=== PATIENT | male | born 1955 | race Caucasian/White ===

== ENCOUNTER 2017-10-12 21:37 | Inpatient (IN) | payer OTHER ==
[~2017-10-12] VITALS: Ht 180.3 cm; Wt 45.8 kg
[~2017-10-12 21:37] MED LIST: ADVIN10/60 INH; ALBU0.5N2 NEB; ALBU1AER9 INH; ASPI-435 PO; BUPR150T7 PO; CYAN500T13 PO; PRED20TA PO; PYRI100T2 PO; SILD100T PO; TRIA3AER NAE
--- NOTE | 2017-10-12 22:31 | EMERGENCY ROOM VISIT NOTE ---
History Report prepared by Jose Juan: Manan Centeno Under the Supervision of: Dr. Tc Oleary M.D. First contact with patient: 22:04 Chief Complaint: CHEST PAIN Stated Complaint: CHEST PAIN/[facility] Nursing Triage Summary: Pt. reports that he was laying in bed at [facility] when he had sudden onset of chest pressure that lasted about 15-20 minutes. Described pain as "felt like someone was sitting on my chest." Denies associated symptoms. He states that he is at [facility] for pneumonia and to get rehab. History of Present Illness The patient is a 62 year old male who presents to the Emergency Room for evaluation of an episode of chest pain occurring an hour prior to arrival. Patient notes that he was sitting at [facility] when he had a 20 min episode of crushing chest pressure. Left sternal area. No radiation. He denies any SOB, palpitations, nausea, vomiting, syncope, leg swelling, nor other symptoms. Notes he just laid in bed and stayed calm until pain went away spontaneously. No medications taken prior to arrival. States can not take ASA due to bleeding. Denies previous cardiac history without recent work-up for CAD. Notes long standing COPD with 2LNC O2 requirement, periodic prednisone use and recent hospitalization for PNA, thus at [facility] last few days. The patient denies having a history of PE/DVT. States he has history of HTN but denies DLP , DM, FamCAD, etc. He currently has no pain. Source of History: patient Onset: an hour prior to arrival Position: chest (left sternal area) Quality: other (crushing) Timing: other (20 minute episode) Modifying Factors (Relieving): other (laying down) Associated Symptoms: No SOB, No nausea, No vomiting Note: He denies any palpitations, leg swelling, and syncope. Review of Systems See HPI for pertinent positives & negatives. A total of 10 systems reviewed and were otherwise negative. Past Medical & Surgical Medical Problems: (1) Chest pain (2) COPD (chronic obstructive pulmonary disease) (3) HTN (hypertension) (4) Pneumonia Family History No pertinent family history stated. Social History Smoking Status: Former Smoker Marital Status: Housing Status: lives with family Occupation Status: disabled Current/Historical Medications Scheduled Acetaminophen (Tylenol), 500 MG PO Q4H Albuterol (Ventolin Hfa), 2 PUFFS INH Q4H Bupropion (Wellbutrin Sr), 150 MG PO BID Cyanocobalamin (Vitamin B12 500MCG), 500 MCG PO QAM Docusate Sodium (Docusate Sodium), 100 MG PO BID Fluticasone Furoate-Vilanterol (Breo Ellipta), 1 PUFF INH QAM Folic Acid (Folvite), 1 MG PO QAM Home O2 Therapy (Oxygen), 2 LITERS NA CONTINOUS Multiple Vitamins W/ Minerals (Centrum Silver Adult 50+), 1 TAB PO QDL Pantoprazole (Protonix), 40 MG PO QAM Potassium Ext Rel (Klor-Con), 20 MEQ PO TIDM Sertraline (Zoloft), 75 MG PO QAM Thiamine Mononitrate (Vitamin B1), 100 MG PO QAM Umeclidinium [place] (Incruse Ellipta), 1 PUFF INH QAM Scheduled PRN Albuterol Sulf (Albuterol Sulfate), 2.5 MG INH Q4H PRN for Shortness of Breath Tramadol (Ultram), 50 MG PO Q4H PRN for Pain Allergies Coded Allergies: Penicillins (Verified Allergy, Intermediate, WHOLE BODY RASH, 10/12/17) Physical Exam Vital Signs Date Time Temp Pulse Resp B/P (MAP) Pulse Ox O2 Delivery O2 Flow Rate FiO2 10/12/17 23:42 84 17 98 Nasal Cannula 2.0 10/12/17 23:30 115/59 10/12/17 23:12 88 14 98 Nasal Cannula 2.0 10/12/17 23:00 103/58 10/12/17 22:42 86 16 98 Nasal Cannula 2.0 10/12/17 22:37 86 20 98 Nasal Cannula 2.0 10/12/17 22:30 103/60 10/12/17 22:07 88 23 98 Nasal Cannula 2.0 10/12/17 22:04 94 10/12/17 22:00 114/58 10/12/17 21:46 103/54 10/12/17 21:38 36.9 87 18 103/54 98 Nasal Cannula 2.0 10/12/17 21:38 98 Nasal Cannula 2.0 10/12/17 21:38 98 Nasal Cannula 2.0 Physical Exam GENERAL: Patient is chronically unwell appearing and in no acute distress. Cachectic HEENT: No acute trauma, normocephalic atraumatic, mucous membranes moist, no nasal congestion, no scleral icterus. NECK: No stridor, no adenopathy, no meningismus, trachea is midline. LUNGS: Distant lung sounds in barrell chested emphysematous male. No dyspnea. Clear to auscultation and equal bilaterally. No wheezing HEART: Regular rate and rhythm. No murmurs, rubs, gallops appreciated. ABDOMEN: Soft, nontender, bowel sounds positive, no peritonitis. Pulsatile mid abdominal mass (patient notes AAA repair history) BACK: No midline tenderness, no CVA tenderness EXTREMITIES: Normal motion all extremities, no cyanosis, no edema. NEUROLOGIC: Alert and oriented, no acute motor or sensory deficits, no focal weakness, cranial nerves grossly intact. SKIN: No rash, no jaundice, no diaphoresis. Medical Decision & Procedures ER Provider Diagnostic Interpretation: Radiology results and stated below per my review and interpretation: 1 VIEW CHEST X-RAY PORTABLE: Severe emphysematous changes with patchy infiltrate throughout left lower lobe. No effusion. No pneumothorax. Laboratory Results 10/12/17 21:17 Red Blood Count 2.98, Mean Corpuscular Volume 102.0, Mean Corpuscular Hemoglobin 35.2, Mean Corpuscular Hemoglobin Concent 34.5, Mean Platelet Volume 11.1, Neutrophils (%) (Auto) 75.1, Lymphocytes (%) (Auto) 15.4, Monocytes (%) ( Auto) 7.2, Eosinophils (%) (Auto) 2.1, Basophils (%) (Auto) 0.0, Neutrophils # ( Auto) 4.69, Lymphocytes # (Auto) 0.96, Monocytes # (Auto) 0.45, Eosinophils # ( Auto) 0.13, Basophils # (Auto) 0.00 10/12/17 21:17 Test 10/12/17 21:17 White Blood Count 6.24 K/uL (4.8-10.8) Red Blood Count 2.98 M/uL (4.7-6.1) Hemoglobin 10.5 g/dL (14.0-18.0) Hematocrit 30.4 % (42-52) Mean Corpuscular Volume 102.0 fL (80-100) Mean Corpuscular Hemoglobin 35.2 pg (25-34) Mean Corpuscular Hemoglobin Concent 34.5 g/dl (32-36) Platelet Count 110 K/uL (130-400) Mean Platelet Volume 11.1 fL (7.4-10.4) Neutrophils (%) (Auto) 75.1 % Lymphocytes (%) (Auto) 15.4 % Monocytes (%) (Auto) 7.2 % Eosinophils (%) (Auto) 2.1 % Basophils (%) (Auto) 0.0 % Neutrophils # (Auto) 4.69 K/uL (1.4-6.5) Lymphocytes # (Auto) 0.96 K/uL (1.2-3.4) Monocytes # (Auto) 0.45 K/uL (0.11-0.59) Eosinophils # (Auto) 0.13 K/uL (0-0.5) Basophils # (Auto) 0.00 K/uL (0-0.2) RDW Standard Deviation 50.7 fL (36.4-46.3) RDW Coefficient of Variation 13.6 % (11.5-14.5) Immature Granulocyte % (Auto) 0.2 % Immature Granulocyte # (Auto) 0.01 K/uL (0.00-0.02) Anion Gap 4.0 mmol/L (3-11) Est Creatinine Clear Calc Drug Dose 73.6 ml/min Estimated GFR () 119.9 Estimated GFR (Non- 103.5 BUN/Creatinine Ratio 31.9 (10-20) Calcium Level 10.1 mg/dl (8.5-10.1) Magnesium Level 1.4 mg/dl (1.8-2.4) Troponin I 0.045 ng/ml (0-0.045) Laboratory results as reviewed by me. Medications Administered Medications (Trade) Dose Ordered Sig/William Route Start Time Stop Time Status Last Admin Dose Admin Magnesium Sulfate (Magnesium Sulfate) 2 gm NOW STAT IV 10/12/17 22:58 10/12/17 22:59 DC 10/12/17 23:17 2 GM Aspirin (Aspirin Chew) 324 mg NOW STAT PO 10/12/17 23:06 10/12/17 23:07 DC 10/12/17 23:17 324 MG ECG Indication: chest pain Rate (beats per minute): 85 Rhythm: sinus rhythm Findings: T-wave inversion (Lateral), no ectopy, other (No ischemia) Comparison ECG Date: no prior available ED Course 2203: The patient was evaluated in room B2. A complete history and physical exam was performed. 2305: I reevaluated and updated the patient. I discussed findings with him and his family. He is agreeable to hospitalist evaluation after a prolonged discussion. He and his family note that he can take aspirin, but was told previously to not take it regularly. 8: Upon reevaluation, the patient is stable. Discussed results and treatment plan with the patient. He verbalized understanding and agreement with the treatment plan. The patient will be evaluated for further management. Discussed the patient's case with Doreen Hassan. The patient will be evaluated for further treatment and disposition. Medical Decision Differential: Cardiac Ischemia (STEMI, NSTEMI, Unstable Angina, etc), Aortic Dissection, Arrhythmia, Pulmonary Embolism, Pneumonia, Pneumothorax, MSK, Infectious, Pericarditis/Myocarditis, Esophageal Rupture, Gastrointestinal, amongst other pathologies entertained. 62 yr old male with longstanding COPD and recent admission to [place] for LLL PNA, where then transferred to [facility] for rehab. This evening 20min CP resolved with no intervention. EKG with lateral T wave inversions. Trop wnl but not negative. No further pain in ED. Mag is quite low which may go with weakness. Will need cardiac rule out and patient/family prefer to do this in hosp rather than rule out in ED. He notes breathing much improved from hospitalization last week and is still on abx. LLL infiltrate likely resolving as opposed to new infiltrate. Medication Reconcilliation Current Medication List: was personally reviewed by me Blood Pressure Screening Patient's blood pressure: Normal blood pressure Blood pressure disposition: Did not require urgent referral Consults Time Called: [phone] Consulting Physician: Doreen Hassan Returned Call: [phone] Discussed the patient's case. The patient will be evaluated for further treatment and disposition. Impression Primary Impression: Substernal chest pain Additional Impressions: Hypomagnesemia Generalized weakness Scribe Attestation The scribe's documentation has been prepared under my direction and personally reviewed by me in its entirety. I confirm that the note above accurately reflects all work, treatment, procedures, and medical decision making performed by me. Departure Information Dispostion Being Evaluated By Hospitalist Referrals Zion Berman PA-C (PCP) Patient Instructions My [facility] Problem Qualifiers
[2017-10-12] MEDS ORDERED: MULT-1027 PO (22:33)
[2017-10-12] MEDS ORDERED: TRAM-10 PO (22:33)
[2017-10-12] MEDS ORDERED: PANT40TA PO (22:33)
[2017-10-12] MEDS ORDERED: FLUT1INH INH (22:33)
[2017-10-12] MEDS ORDERED: CYAN500T13 PO (22:33)
[2017-10-12] MEDS ORDERED: RRALBUT083 INH (22:33)
[2017-10-12] MEDS ORDERED: UMEC1INH INH (22:33)
[2017-10-12] MEDS ORDERED: DOCU100C31 PO (22:33)
[2017-10-12] MEDS ORDERED: ACET-1256 PO (22:33)
[2017-10-12] MEDS ORDERED: THIA1TAB11 PO (22:33)
[2017-10-12] MEDS ORDERED: OXGN (22:33)
[2017-10-12] MEDS ORDERED: POTA20TA16 PO (22:33)
[2017-10-12] MEDS ORDERED: PRVHFAIN INH (22:33)
[2017-10-12] MEDS ORDERED: FOLI1TAB8 PO (22:33)
[2017-10-12] MEDS ORDERED: SERT25TA PO (22:33)
[2017-10-12] MEDS ORDERED: BUPR-79 PO (22:41)
[2017-10-12] MEDS ORDERED: MULT-845 PO (22:41)
--- NOTE | 2017-10-12 22:46 | DIAGNOSTIC IMAGING REPORT ---
CHEST ONE VIEW PORTABLE CLINICAL HISTORY: Chest Pain dyspnea COMPARISON STUDY: No previous studies for comparison. FINDINGS: Diffuse emphysematous change. Chronic basilar interstitial and fibrotic change. Upper lobe emphysematous bleb changes. Postoperative changes left hilum. IMPRESSION: Diffuse emphysematous change with a potential interstitial infiltrate left base versus chronic fibrosis The above report was generated using voice recognition software. It may contain grammatical, syntax or spelling errors. Electronically signed by: Filemon Laura M.D. 10/12/2017 10:44 PM Dictated Date/Time: 10/12/2017 10:44 PM
[2017-10-12 22:48] LABS: EOS % 2.1 %; EOS ABS # 0.13 K/uL (0-0.5); HEMATOCRIT 30.4 % (42-52); HEMOGLOBIN 10.5 g/dL (14.0-18.0); IG# 0.01 K/uL (0.00-0.02); LYMPH % 15.4 %; LYMPH ABS # 0.96 K/uL (1.2-3.4); MEAN CORPUSCULAR HEMOGLOBIN 35.2 pg (25-34); MEAN CORPUSCULAR HGB CONC 34.5 g/dl (32-36); MEAN PLATELET VOLUME 11.1 fL (7.4-10.4); MONO % 7.2 %; MONO ABS # 0.45 K/uL (0.11-0.59); NEUT % 75.1 %; NEUT ABS # 4.69 K/uL (1.4-6.5); PLATELET COUNT 110 K/uL (130-400); RED CELL DISTRIBUTION WIDTH CV 13.6 % (11.5-14.5); RED CELL DISTRIBUTION WIDTH SD 50.7 fL (36.4-46.3); WHITE BLOOD COUNT 6.24 K/uL (4.8-10.8)
[2017-10-12 22:54] LABS: CALCIUM 10.1 mg/dl (8.5-10.1); CREATININE 0.64 mg/dl (0.60-1.40); POTASSIUM 4.4 mmol/L (3.5-5.1)
[2017-10-12] MEDS ORDERED: MAGNESIUM SULFATE 1GM / D5W 1 GM BAG IV STA (22:58)
[2017-10-12] MEDS ORDERED: ASPIRIN 324 MG CHEW PO STA (23:06)
[2017-10-13] MEDS ORDERED: TRAMADOL HCL 50 MG TAB PO PRN
[2017-10-13] MEDS ORDERED: ALBUTEROL 0.083% NEBU SOLN 3 ML VIAL INH PRN
[2017-10-13] MEDS ORDERED: ACETAMINOPHEN 500 MG TAB PO PRN
--- NOTE | 2017-10-13 00:16 | History and Physical ---
History & Physical Date & Time of Service: Oct 13, 2017 at 00:11 Chief Complaint: Chest Pain/[facility] Primary Care Physician: Zion Berman PA-C History of Present Illness Source: patient, family 62 year old M who was admitted to [facility] for Pneumonia / COPD on October 06, 2017 and discharged on Tuesday October 10, 2017 to [facility] when patient felt 15 minutes of midsternal chest pain, non radiating, about 2 hours after dinner. Patient reports symptoms resolved on its own. Denies previous similar symptoms. Denies history of gastric reflux. Patient's past medical history significant for COPD, is on oxygen 24 hours a day, history of lung resection, abdominal aortic aneurysm repair. Patient seen and evaluated in the Ed by hospitalist medicine physician and denies recurrence of the chest discomfort so far. Denies abdominal pain or changes in oral intake or urination or in bowel movements Social History Smoking Status: Former Smoker Marital Status: Occupational Status: disabled Allergies Coded Allergies: Penicillins (Verified Allergy, Intermediate, WHOLE BODY RASH, 10/12/17) Home Medications Scheduled Acetaminophen (Tylenol), 500 MG PO Q4H Albuterol (Ventolin Hfa), 2 PUFFS INH Q4H Bupropion (Wellbutrin Sr), 150 MG PO BID Cyanocobalamin (Vitamin B12 500MCG), 500 MCG PO QAM Docusate Sodium (Docusate Sodium), 100 MG PO BID Fluticasone Furoate-Vilanterol (Breo Ellipta), 1 PUFF INH QAM Folic Acid (Folvite), 1 MG PO QAM Home O2 Therapy (Oxygen), 2 LITERS NA CONTINOUS Multiple Vitamins W/ Minerals (Centrum Silver Adult 50+), 1 TAB PO QDL Pantoprazole (Protonix), 40 MG PO QAM Potassium Ext Rel (Klor-Con), 20 MEQ PO TIDM Sertraline (Zoloft), 75 MG PO QAM Thiamine Mononitrate (Vitamin B1), 100 MG PO QAM Umeclidinium [place] (Incruse Ellipta), 1 PUFF INH QAM Scheduled PRN Albuterol Sulf (Albuterol Sulfate), 2.5 MG INH Q4H PRN for Shortness of Breath Tramadol (Ultram), 50 MG PO Q4H PRN for Pain Review of Systems Constitutional: No fever Eyes: No discharge ENT: No nasal symptoms, No sore throat, No trouble swallowing Respiratory: No cough, No sputum, No wheezing, No shortness of breath Cardiovascular: + chest pain, No edema, No palpitations Abdomen: No pain, No nausea, No vomiting, No diarrhea, No constipation Musculoskeletal: No joint pain, No muscle pain, No swelling, No calf pain Genitourinary - Male: No dysuria Neurologic: No numbness/tingling Psychiatric: No substance abuse Endocrine: No fatigue Hematologic / Lymphatic: No abnormal bleeding/bruising Integumentary: No rash Physical Exam Vital Signs Date Time Temp Pulse Resp B/P (MAP) Pulse Ox O2 Delivery O2 Flow Rate FiO2 10/12/17 22:37 86 20 98 10/12/17 22:30 103/60 10/12/17 22:07 88 23 98 10/12/17 22:04 94 10/12/17 22:00 114/58 10/12/17 21:46 103/54 10/12/17 21:38 36.9 87 18 103/54 98 Nasal Cannula 2.0 10/12/17 21:38 98 Nasal Cannula 2.0 10/12/17 21:38 98 Nasal Cannula 2.0 General Appearance: no apparent distress, + thin Head: normocephalic, atraumatic Eyes: normal inspection, EOMI, sclerae normal ENT: normal ENT inspection, hearing grossly normal, pharynx normal Neck: supple, no JVD, trachea midline Respiratory/Chest: chest non-tender, lungs clear, normal breath sounds, no respiratory distress, no accessory muscle use Cardiovascular: regular rate, rhythm, no edema, no JVD, normal peripheral pulses Abdomen/GI: normal bowel sounds, non tender, soft, no organomegaly Back: normal inspection, no muscle spasm, normal range of motion Extremities/Musculoskelatal: normal inspection, no calf tenderness, no pedal edema, non-tender Neurologic/Psych: alert, normal mood/affect, oriented x 3 Skin: normal color, warm/dry, no rash Diagnostics Laboratory Results Results Past 24 Hours Test 10/12/17 21:17 Range/Units White Blood Count 6.24 4.8-10.8 K/uL Red Blood Count 2.98 4.7-6.1 M/uL Hemoglobin 10.5 14.0-18.0 g/dL Hematocrit 30.4 42-52 % Mean Corpuscular Volume 102.0 80-100 fL Mean Corpuscular Hemoglobin 35.2 25-34 pg Mean Corpuscular Hemoglobin Concent 34.5 32-36 g/dl Platelet Count 110 130-400 K/uL Mean Platelet Volume 11.1 7.4-10.4 fL Neutrophils (%) (Auto) 75.1 % Lymphocytes (%) (Auto) 15.4 % Monocytes (%) (Auto) 7.2 % Eosinophils (%) (Auto) 2.1 % Basophils (%) (Auto) 0.0 % Neutrophils # (Auto) 4.69 1.4-6.5 K/uL Lymphocytes # (Auto) 0.96 1.2-3.4 K/uL Monocytes # (Auto) 0.45 0.11-0.59 K/uL Eosinophils # (Auto) 0.13 0-0.5 K/uL Basophils # (Auto) 0.00 0-0.2 K/uL RDW Standard Deviation 50.7 36.4-46.3 fL RDW Coefficient of Variation 13.6 11.5-14.5 % Immature Granulocyte % (Auto) 0.2 % Immature Granulocyte # (Auto) 0.01 0.00-0.02 K/uL Sodium Level 132 136-145 mmol/L Potassium Level 4.4 3.5-5.1 mmol/L Chloride Level 96 98-107 mmol/L Carbon Dioxide Level 32 21-32 mmol/L Anion Gap 4.0 3-11 mmol/L Blood Urea Nitrogen 20 7-18 mg/dl Creatinine 0.64 0.60-1.40 mg/dl Est Creatinine Clear Calc Drug Dose 73.6 ml/min Estimated GFR () 119.9 Estimated GFR (Non- 103.5 BUN/Creatinine Ratio 31.9 10-20 Random Glucose 114 70-99 mg/dl Calcium Level 10.1 8.5-10.1 mg/dl Magnesium Level 1.4 1.8-2.4 mg/dl Troponin I 0.045 0-0.045 ng/ml Impression Assessment and Plan Cardiac -felt 15 minutes of midsternal chest pain, non radiating, about 2 hours after dinner -received aspirin 324 mg in the ED -troponin negative x 1, trend troponin -abdominal aortic aneurysm repair in the past -[facility] No change from study dated 02/02/2016, Aortic stenosis is absent. There is no -significant aortic regurgitation, Mitral stenosis is absent. Mild mitral regurgitation is present, Pulmonic stenosis is absent. There is no significant pulmonary regurgitation -since patient's recent echocardiogram has been normal, will ask cardiology to evaluate whether additional echocardiogram testing is needed for this presentation -NPO after midnight if needs stress test GI no prior history of gastric reflux will add ranitidine in case symptoms were due to GERD History of alcohol use in the past as [facility] notes Ativan prn if alcohol withdrawal symptoms Electrolytes Hypomagnesemia, serum magnesium 1.4. ED physician ordered IV magnesium 2 grams, will need to recheck serum magnesium levels for further replacement Respiratory reports history of lung resection, on 24 hour home oxygen, has smoking history, COPD/Asthma admitted to [facility] for Pneumonia / COPD on October 06, 2017 and discharged on Tuesday October 10, 2017 CXR: Diffuse emphysematous change with a potential interstitial infiltrate left base versus chronic fibrosis continue oxygen and home inhalers Disposition: Observation telemetry Full Code Daughter [phone] Level of Care Telemetry Resuscitation Status FULL RESUSCITATION VTE Prophylaxis VTE Risk Assessment Done? Y/N: Yes Risk Level: Moderate
[2017-10-13] MEDS ORDERED: IV FLUIDS COMPLETED PRN (00:30)
[2017-10-13] MEDS: BOOST VANILLA PO SCH (00:31)
[2017-10-13] MEDS ORDERED: LORAZEPAM 2 MG/ML 1 ML VIAL IV PRN (01:00)
[2017-10-13 01:15] VITALS: BP 86/56; PULSE 91; TEMP 36.5; O2SAT 94; BMI 13.6
[2017-10-13] MEDS ORDERED: MAGNESIUM SULFATE 1GM / D5W 1 GM in PREMIXED IN D5W 100 ML IV STA (02:04)
[2017-10-13] MEDS: ALBUTEROL HFA 8 GM INHALER INH SCH ×5 (04:08→20:35)
[2017-10-13 05:09] VITALS: BP 98/58; PULSE 76; TEMP 36.6; O2SAT 98
[2017-10-13 05:39] LABS: BASO % 0.2 %; BASO ABS # 0.01 K/uL (0-0.2); EOS % 2.4 %; EOS ABS # 0.14 K/uL (0-0.5); HEMATOCRIT 29.6 % (42-52); HEMOGLOBIN 10.2 g/dL (14.0-18.0); IG# 0.02 K/uL (0.00-0.02); LYMPH % 16.6 %; LYMPH ABS # 0.97 K/uL (1.2-3.4); MEAN CORPUSCULAR HEMOGLOBIN 34.8 pg (25-34); MEAN CORPUSCULAR HGB CONC 34.5 g/dl (32-36); MEAN PLATELET VOLUME 11.1 fL (7.4-10.4); MONO ABS # 0.41 K/uL (0.11-0.59); NEUT % 73.5 %; NEUT ABS # 4.31 K/uL (1.4-6.5); PLATELET COUNT 109 K/uL (130-400); RED CELL DISTRIBUTION WIDTH CV 13.6 % (11.5-14.5); RED CELL DISTRIBUTION WIDTH SD 49.7 fL (36.4-46.3); WHITE BLOOD COUNT 5.86 K/uL (4.8-10.8)
[2017-10-13 06:13] LABS: ALBUMIN 2.5 gm/dl (3.4-5.0); CALCIUM 9.1 mg/dl (8.5-10.1); CREATININE 0.41 mg/dl (0.60-1.40)
[2017-10-13 06:19] LABS: TOTAL PROTEIN 5.8 gm/dl (6.4-8.2)
[2017-10-13 07:39] VITALS: BP 99/64; PULSE 65; TEMP 36.8; O2SAT 100
[2017-10-13] MEDS: INCRUSE ELLIPTA~ORDER AWAITING ACTION SCH ×3 (08:00→23:36)
[2017-10-13] MEDS: POTASSIUM CHLORIDE 20 MEQ TABCR PO SCH ×3 (08:28→16:16)
[2017-10-13] MEDS: PANTOprazole SOD 40 MG TAB PO SCH (08:29)
[2017-10-13] MEDS: DOCUSATE SODIUM 100 MG CAP PO SCH ×2 (08:29→20:35)
[2017-10-13] MEDS: SERTRALINE HCL 50 MG TAB PO SCH (08:30)
[2017-10-13] MEDS: THIAMINE HCL 100 MG TAB PO SCH (08:30)
[2017-10-13] MEDS: RANITIDINE HCL 150 MG TAB PO SCH (08:30)
[2017-10-13] MEDS: BuPROPion SR 150 MG TABCR PO SCH ×2 (08:30→20:35)
[2017-10-13] MEDS: CYANOCOBALAMIN 500 MCG TAB (VIT B-12) PO SCH (08:30)
[2017-10-13] MEDS ORDERED: PERFLUTREN LIPID MICROSPHERE (DEFINITY) IV ONE (09:22)
[2017-10-13] MEDS ORDERED: HEPARIN IV BOLUS 4,000 UNIT in SYRINGE 0 ML IV ONE ×2 (10:45→19:00)
--- NOTE | 2017-10-13 10:51 | ECHOCARDIOGRAM REPORT ---
*NOTICE TO RECEIVING DEMOCRAT AGENCY This information is strictly Confidential and protected under [place] law. [place] law prohibits you from making any further disclosure of this information unless further disclosure is expressly permitted by the written consent of the person to whom it pertains or is authorized by law. A general authorization for the release of medical or other information is not sufficient for this purpose. Hospital accepts no responsibility if the information is made available to any other person, INCLUDING THE PATIENT. Interpretation Summary * Name: CARLOS MANUEL SANTIAGO Study Date: 10/13/2017 08:46 AM BP: 99/64 mmHg * Patient Location: [facility]\S\[id number]\S\[id number] HR: 65 * : 1955 (M/d/yyy) Gender: Male Height: 71 in * Age: 62 yrs Ethnicity: [place] Weight: 97 lb * Ordering Physician: Darwin Munson * Referring Physician: Dena Richard * Performed By: Meghana Jackson RDCS * * Reason For Study: CHEST PAIN * BSA: 1.6 m2 * The study was technically adequate. * There is no comparison study available. * -- Conclusions -- * Ejection Fraction = 55-60%. * The left ventricular wall motion is normal. * Aortic valve sclerosis mild, without significant aortic valvular stenosis. * There is trace tricuspid regurgitation. Procedure Details * A contrast injection of Definity was performed to improve assessment of LV function. * Contrast was injected into an intravenous site in the left arm. * One vial of Definity ultrasound contrast was diluted in normal saline to a total volume of 10 ml. A total of '2' ml of solution was administered during imaging. * Lot # [id number] of Definity utilized for procedure. * Expiration date 1 NOV 20. * The attending nurse who injected the contrast agent was BLAINE AMAYA RN. * A complete two-dimensional transthoracic echocardiogram was performed (2D, M-mode, Doppler and color flow Doppler). Left Ventricle * The left ventricle is normal in size. * There is no thrombus. * There is normal left ventricular wall thickness. * Ejection Fraction = 55-60%. * Left ventricular systolic function is normal. * The left ventricular wall motion is normal. Right Ventricle * The right ventricle is normal size. * The right ventricular systolic function is normal as assessed by tricuspid annular plane systolic excursion (TAPSE) (normal >1.5 cm). Atria * The left atrial size is normal. * Right atrial size is normal. * There is no evidence of atrial septal defect, but resolution does not allow assessment for a patent foramen ovale. Mitral Valve * The mitral valve is normal. * There is no mitral valve stenosis. * Significant mitral regurgitation is absent. Tricuspid Valve * The tricuspid valve is normal. * There is no tricuspid stenosis. * There is trace tricuspid regurgitation. Aortic Valve * The aortic valve is trileaflet. * Aortic valve sclerosis mild, without significant aortic valvular stenosis. * Aortic stenosis is absent. * There is no significant aortic regurgitation. Pulmonic Valve * The pulmonary valve is not well seen, but the Doppler examination is normal without significant regurgitation or stenosis. Great Vessels * The aortic root is normal size. Pericardium/Pleural * There is no pericardial effusion. Great Vessels * Normal inferior vena cava diameter and respiratory variation suggests normal central venous pressure. Left Ventricular Diastolic Function * Pulse wave TDI of the anterior and posterior mitral annulas demonstrates normal LV relaxation MMode 2D Measurements and Calculations IVSd 0.81 cm IVSs 1.2 cm LVIDd 4.1 cm LVIDs 2.7 cm LVPWd 1.3 cm LVPWs 1.3 cm IVS/LVPW 0.65 FS 34.6 % EDV(Teich) 74.7 ml ESV(Teich) 26.8 ml EF(Teich) 64.2 % EDV(cubed) 69.5 ml ESV(cubed) 19.5 ml EF(cubed) 72.0 % % IVS thick 51.7 % % LVPW thick 0.98 % LV mass(C)d 138.7 grams LV mass(C)dI 89.4 grams/m\S\2 LV mass(C)s 100.5 grams LV mass(C)sI 64.8 grams/m\S\2 SV(Teich) 47.9 ml SI(Teich) 30.9 ml/m\S\2 SV(cubed) 50.0 ml SI(cubed) 32.3 ml/m\S\2 Ao root diam 4.0 cm Ao root area 12.6 cm\S\2 LA dimension 2.9 cm LA/Ao 0.72 LVAd ap4 26.7 cm\S\2 LVLd ap4 7.3 cm EDV(MOD-sp4) 80.6 ml EDV(sp4-el) 82.4 ml LVAs ap4 15.6 cm\S\2 LVLs ap4 5.9 cm ESV(MOD-sp4) 35.0 ml ESV(sp4-el) 35.4 ml EF(MOD-sp4) 56.6 % EF(sp4-el) 57.0 % LVAd ap2 30.0 cm\S\2 LVLd ap2 8.0 cm EDV(MOD-sp2) 95.1 ml EDV(sp2-el) 94.8 ml LVAs ap2 16.4 cm\S\2 LVLs ap2 6.4 cm ESV(MOD-sp2) 35.7 ml ESV(sp2-el) 35.9 ml EF(MOD-sp2) 62.4 % EF(sp2-el) 62.2 % LVLd %diff 8.9 % EDV(MOD-bp) 91.5 ml LVLs %diff 7.8 % ESV(MOD-bp) 36.8 ml EF(MOD-bp) 59.8 % SV(MOD-sp4) 45.7 ml SI(MOD-sp4) 29.4 ml/m\S\2 SV(MOD-sp2) 59.4 ml SI(MOD-sp2) 38.3 ml/m\S\2 SV(MOD-bp) 54.7 ml SI(MOD-bp) 35.3 ml/m\S\2 SV(sp4-el) 47.0 ml SI(sp4-el) 30.3 ml/m\S\2 SV(sp2-el) 59.0 ml SI(sp2-el) 38.0 ml/m\S\2 Doppler Measurements and Calculations Ao V2 max 103.2 cm/sec Ao max PG 4.3 mmHg Ao max PG (full) 1.1 mmHg LV V1 max PG 3.2 mmHg LV V1 max 88.8 cm/sec
[2017-10-13 11:38] LABS: INR 0.9 (0.9-1.1); PTT PATIENT 25.7 SECONDS (21.0-31.0)
[2017-10-13 11:40] VITALS: BP 90/58; PULSE 81; TEMP 37.1; O2SAT 91
--- NOTE | 2017-10-13 11:42 | CARDIOLOGY CONSULTATION ---
DATE OF CONSULTATION: 10/13/2017 REFERRING PHYSICIAN: Dr. Tashi Ramesh. REASON FOR CONSULTATION: Chest pain. HISTORY OF PRESENT ILLNESS: Mr. Aldana is a chronically ill 62-year-old gentleman who was transferred from [facility] due to an episode of chest discomfort. He had been hospitalized for pneumonia and COPD exacerbation on October 06 in [place]. He was then transferred to [facility] on October 10. On the evening of admission, the patient developed an episode of chest tightness which was nonradiating about 2 hours after dinner. He states the symptoms lasted approximately 15 minutes. Denies any previous heartburn or gastroesophageal reflux disease. He came to the ER for evaluation. Initial EKG demonstrated sinus rhythm with T-wave abnormality in the anterolateral leads. His repeat ECG this morning demonstrates deep T-wave inversions. His cardiac enzymes are not significantly elevated. He has been chest pain free overnight. Denies prior history of coronary disease, congestive heart failure, peripheral vascular disease, or dysrhythmia. The patient is extremely thin appearing and cachectic. He admits to excessive alcohol and tobacco use over the past 6 months with a nearly 60 pound weight loss. He currently offers no complaints. REVIEW OF SYSTEMS: Significant for cachexia, chronic dyspnea on exertion, cough, episode of chest discomfort, comprehensive 10 system review is otherwise negative. PAST MEDICAL HISTORY: COPD, hypertension, pneumonia. PAST SURGICAL HISTORY: Not listed. FAMILY HISTORY: Negative for premature coronary artery disease or sudden cardiac . SOCIAL HISTORY: Significant heavy tobacco abuse noted. He quit smoking last month. He is and usually lives with his family. He is on disability. OUTPATIENT MEDICATIONS: Prior to admission: 1. Breo inhaler 2 puffs every 4 hours. 2. Wellbutrin 150 mg twice daily. 3. Vitamin B12 500 mcg daily. 4. Colace 100 mg b.i.d. 5. Breo one puff daily. 6. Supplemental oxygen 2 liters continuous. 7. Protonix 40 mg daily. 8. Potassium chloride 20 mEq t.i.d. 9. Zoloft 75 mg daily. 10. B1 daily. 11. Ellipta daily. 12. Tramadol as needed. ALLERGIES: LISTED TO PENICILLIN. ECG noted as above. Chest x-ray demonstrates COPD without infiltrate or pulmonary edema. LABORATORY DATA: Cardiac enzymes are negative. His sodium is 131, potassium 4.0, chloride 97, BUN is 19 with creatinine 0.41. Triglycerides 94, total cholesterol 124, LDL is 67 and his HDL is 38. White blood cell count 5.86. His hemoglobin is 10.2 with an MCV of 101, his platelet count is 109. Telemetry demonstrates sinus rhythm. PHYSICAL EXAMINATION: VITAL SIGNS: Temperature is 36.8 degrees centigrade, pulse 65 beats per minute and regular, respiratory rate 20 breaths per minute, blood pressure is 99/64, SaO2 is 100% on 2 liters nasal cannula. GENERAL: NAD, cachectic, chronically ill appearing. He is awake, alert and oriented x3. HEENT: His mucous membranes are moist. No scleral icterus. Conjunctivae pink. NECK: Supple. There is no JVD or HJR. No carotid bruit. HEART: Regular with a normal S1 and S2. There is no murmur, rub, or gallop. LUNGS: Demonstrate diminished breath sounds bilaterally. There is a faint end expiratory wheezing noted bilaterally. There are no rhonchi or rales. ABDOMEN: Thin, nontender, no rebound or guarding, normal bowel sounds. EXTREMITIES: Demonstrate severe muscle wasting. Distal pulses are palpable. NEUROLOGIC: No focal deficit. FINAL IMPRESSION: 1. A 62-year-old male admitted with episode of transient chest discomfort. A repeat resting 2D transthoracic echo demonstrates normal wall motion, cardiac enzymes are not significantly elevated. His ECG demonstrates changes which are concerning for underlying ischemic heart disease, although he has been asymptomatic over the past 12 hours. 2. Cachexia, possibly related to heavy alcohol intake with evidence of anemia, thrombocytopenia and macrocytosis per CBC. 3. History of heavy tobacco abuse and severe underlying chronic obstructive pulmonary disease on continuous oxygen supplementation. 4. Recent hospitalization for pneumonia/chronic obstructive pulmonary disease exacerbation. 5. History of hypertension, currently borderline hypotensive and asymptomatic, antihypertensive medications on hold. PLAN AND RECOMMENDATIONS: Bedside echo was reviewed demonstrating normal wall motion. Recommend conservative medical management due to patient's comorbidity, cachexia, history of excessive alcohol intake, anemia, thrombocytopenia at this time. We will initiate IV heparin with close monitoring for any signs of GI blood loss. We will continue telemetry monitoring during hospitalization. Low dose aspirin and statin therapy will be added at this time. Repeat LFTs will be performed in the a.m. Awaiting result of coagulation profile given presumed underlying liver disease related to alcohol intake. We will continue to follow closely during hospitalization. Case discussed with hospitalized. Thank you for allowing me to participate in the care of your patient.
[2017-10-13] MEDS: HEPARIN 25,000 UNIT/500ML D5W 500 ML IV PRN ×2 (11:48→19:27)
[2017-10-13 12:36] VITALS: Ht 180.3 cm; Wt 45.8 kg
[2017-10-13] MEDS: CEROVITE ADV FORMULA TAB PO SCH (13:06)
[2017-10-13 15:30] VITALS: BP 103/64; PULSE 99; TEMP 36.9; O2SAT 96
--- NOTE | 2017-10-13 15:59 | Progress Note ---
Internal Med Progress Note Date of Service: Oct 13, 2017. Provider Documentation: SUBJECTIVE: The patient was seen and examined Admitted with Chest pain and significant EKG changes No more CP OBJECTIVE: Vital Signs-as noted below Exam: General-No distress at rest Poor nutrition Eyes-normal ENT-normal Neck-Supple Lungs-Decreased breath sound bilaterally Heart-Regular Abdomen-Benign,no masses,bowel sound present Extremities-No edema Neuro-AAOx3 Lab data as noted below. ASSESSMENT & PLAN: Transient CP with EKG changes No more CP No increase in Trop -echocardiogram Study Date: 07/24/2017 from [facility] EF = 63% No change from study dated 02/02/2016, Aortic stenosis is absent. There is no -significant aortic regurgitation, Mitral stenosis is absent. Mild mitral regurgitation is present, Pulmonic stenosis is absent. There is no significant pulmonary regurgitation ECHO-Ejection Fraction = 55-60%. * The left ventricular wall motion is normal. * Aortic valve sclerosis mild, without significant aortic valvular stenosis. * There is trace tricuspid regurgitation. Appreciate Cardiology input Has been on Heparin Likely conservative management GERD will add ranitidine in case symptoms were due to GERD History of alcohol use in the past as [facility] notes Ativan prn if alcohol withdrawal symptoms Electrolytes Abnormalities Hypomagnesemia, serum magnesium 1.4. ED physician ordered IV magnesium 2 grams, will need to recheck serum magnesium levels for further replacement Monitor COPD H/O lung resection, on 24 hour home oxygen, has smoking history, COPD/Asthma Admitted to [facility] for Pneumonia / COPD on October 06, 2017 and discharged on Tuesday October 10, 2017 CXR: Diffuse emphysematous change with a potential interstitial infiltrate left base versus chronic fibrosis Continue oxygen and home inhalers Clinically stable Disposition: Observation telemetry Full Code Discussed with the family members Vital Signs: Date Time Temp Pulse Resp B/P (MAP) Pulse Ox O2 Delivery O2 Flow Rate FiO2 10/13/17 15:30 36.9 99 16 103/64 (77) 96 2.0 10/13/17 12:00 Nasal Cannula 2.0 10/13/17 11:40 37.1 81 18 90/58 (69) 91 10/13/17 08:00 Nasal Cannula 2.0 10/13/17 07:39 36.8 65 20 99/64 (76) 100 10/13/17 05:09 36.6 76 18 98/58 (71) 98 Nasal Cannula 2.0 10/13/17 04:00 Nasal Cannula 2.0 10/13/17 01:15 36.5 91 18 86/56 94 Nasal Cannula 2.0 10/13/17 00:30 108/53 10/13/17 00:17 85 15 97 Nasal Cannula 2.0 10/13/17 00:12 83 16 96 Nasal Cannula 2.0 10/13/17 00:01 108/54 10/13/17 00:00 108/54 10/12/17 23:42 84 17 98 Nasal Cannula 2.0 10/12/17 23:30 115/59 10/12/17 23:12 88 14 98 Nasal Cannula 2.0 10/12/17 23:00 103/58 10/12/17 22:42 86 16 98 Nasal Cannula 2.0 10/12/17 22:37 86 20 98 Nasal Cannula 2.0 10/12/17 22:30 103/60 10/12/17 22:07 88 23 98 Nasal Cannula 2.0 10/12/17 22:04 94 10/12/17 22:00 114/58 10/12/17 21:46 103/54 10/12/17 21:38 36.9 87 18 103/54 98 Nasal Cannula 2.0 10/12/17 21:38 98 Nasal Cannula 2.0 10/12/17 21:38 98 Nasal Cannula 2.0 Lab Results: Results Past 24 Hours Test 10/12/17 21:17 10/13/17 05:04 10/13/17 10:25 10/13/17 11:12 Range/Units White Blood Count 6.24 5.86 4.8-10.8 K/uL Red Blood Count 2.98 2.93 4.7-6.1 M/uL Hemoglobin 10.5 10.2 14.0-18.0 g/dL Hematocrit 30.4 29.6 42-52 % Mean Corpuscular Volume 102.0 101.0 80-100 fL Mean Corpuscular Hemoglobin 35.2 34.8 25-34 pg Mean Corpuscular Hemoglobin Concent 34.5 34.5 32-36 g/dl Platelet Count 110 109 130-400 K/uL Mean Platelet Volume 11.1 11.1 7.4-10.4 fL Neutrophils (%) (Auto) 75.1 73.5 % Lymphocytes (%) (Auto) 15.4 16.6 % Monocytes (%) (Auto) 7.2 7.0 % Eosinophils (%) (Auto) 2.1 2.4 % Basophils (%) (Auto) 0.0 0.2 % Neutrophils # (Auto) 4.69 4.31 1.4-6.5 K/uL Lymphocytes # (Auto) 0.96 0.97 1.2-3.4 K/uL Monocytes # (Auto) 0.45 0.41 0.11-0.59 K/uL Eosinophils # (Auto) 0.13 0.14 0-0.5 K/uL Basophils # (Auto) 0.00 0.01 0-0.2 K/uL RDW Standard Deviation 50.7 49.7 36.4-46.3 fL RDW Coefficient of Variation 13.6 13.6 11.5-14.5 % Immature Granulocyte % (Auto) 0.2 0.3 % Immature Granulocyte # (Auto) 0.01 0.02 0.00-0.02 K/uL Sodium Level 132 131 136-145 mmol/L Potassium Level 4.4 4.0 3.5-5.1 mmol/L Chloride Level 96 97 98-107 mmol/L Carbon Dioxide Level 32 32 21-32 mmol/L Anion Gap 4.0 2.0 3-11 mmol/L Blood Urea Nitrogen 20 19 7-18 mg/dl Creatinine 0.64 0.41 0.60-1.40 mg/dl Est Creatinine Clear Calc Drug Dose 73.6 113.5 ml/min Estimated GFR () 119.9 144.0 Estimated GFR (Non- 103.5 124.3 BUN/Creatinine Ratio 31.9 45.9 10-20 Random Glucose 114 116 70-99 mg/dl Calcium Level 10.1 9.1 8.5-10.1 mg/dl Magnesium Level 1.4 2.5 1.8-2.4 mg/dl Troponin I 0.045 0.039 0.034 0-0.045 ng/ml Total Bilirubin 0.2 0.2-1 mg/dl Aspartate Amino Transf (AST/SGOT) 42 15-37 U/L Alanine Aminotransferase (ALT/SGPT) 51 12-78 U/L Alkaline Phosphatase 62 45-117 U/L Total Protein 5.8 6.4-8.2 gm/dl Albumin 2.5 3.4-5.0 gm/dl Globulin 3.3 2.5-4.0 gm/dl Albumin/Globulin Ratio 0.8 0.9-2 Triglycerides Level 94 0-150 mg/dl Cholesterol Level 124 0-200 mg/dl HDL Cholesterol 38 mg/dl LDL Cholesterol, Calculated 67 mg/dl VLDL Cholesterol, Calculated 19 mg/dl Cholesterol/HDL Ratio 3.3 Prothrombin Time 9.4 9.0-12.0 SECONDS Prothromb Time International Ratio 0.9 0.9-1.1 Activated Partial Thromboplast Time 25.7 21.0-31.0 SECONDS Partial Thromboplastin Ratio 1.0 Microbiology Results 10/13/17 MRSA DNA Surveillance Screen - Final, Complete Specimen Negative for MRSA by DNA Probe
[2017-10-13 18:16] LABS: PTT PATIENT 32.9 SECONDS (21.0-31.0)
[2017-10-13 20:13] VITALS: BP 114/71; PULSE 85; TEMP 36.8; O2SAT 96
[2017-10-14] VITALS (8 sets, daily range): BP systolic 98–114; BP diastolic 48–66; PULSE 71–83; TEMP 36.3–37; O2SAT 93–100
[2017-10-14 02:19] LABS: PTT PATIENT 45.7 SECONDS (21.0-31.0)
[2017-10-14] MEDS: HEPARIN 25,000 UNIT/500ML D5W 500 ML IV PRN ×2 (03:57→13:04)
[2017-10-14] MEDS: ALBUTEROL HFA 8 GM INHALER INH SCH ×6 (03:57→19:26)
[2017-10-14] MEDS ORDERED: HEPARIN IV BOLUS 2,000 UNIT in SYRINGE 0 ML IV ONE (04:00)
[2017-10-14] MEDS: INCRUSE ELLIPTA~ORDER AWAITING ACTION SCH ×2 (07:52→15:58)
[2017-10-14] MEDS: BOOST VANILLA PO SCH ×3 (07:53→15:58)
[2017-10-14] MEDS: RANITIDINE HCL 150 MG TAB PO SCH (07:55)
[2017-10-14] MEDS: THIAMINE HCL 100 MG TAB PO SCH (07:55)
[2017-10-14] MEDS: DOCUSATE SODIUM 100 MG CAP PO SCH ×2 (07:55→20:53)
[2017-10-14] MEDS: SERTRALINE HCL 50 MG TAB PO SCH (07:55)
[2017-10-14] MEDS: BuPROPion SR 150 MG TABCR PO SCH ×2 (07:56→20:53)
[2017-10-14] MEDS: ATORVASTATIN 10 MG TAB PO SCH (07:56)
[2017-10-14] MEDS: PANTOprazole SOD 40 MG TAB PO SCH (07:56)
[2017-10-14] MEDS: ASPIRIN 81 MG CHEW PO SCH (07:56)
[2017-10-14] MEDS: CYANOCOBALAMIN 500 MCG TAB (VIT B-12) PO SCH (07:56)
[2017-10-14] MEDS: POTASSIUM CHLORIDE 20 MEQ TABCR PO SCH ×3 (07:57→15:59)
[2017-10-14 08:08] LABS: HEMATOCRIT 29.5 % (42-52); HEMOGLOBIN 10.2 g/dL (14.0-18.0); MEAN CELL VOLUME 101.4 fL (80-100); MEAN CORPUSCULAR HEMOGLOBIN 35.1 pg (25-34); MEAN CORPUSCULAR HGB CONC 34.6 g/dl (32-36); MEAN PLATELET VOLUME 10.8 fL (7.4-10.4); PLATELET COUNT 113 K/uL (130-400); RED CELL DISTRIBUTION WIDTH CV 13.6 % (11.5-14.5); RED CELL DISTRIBUTION WIDTH SD 50.2 fL (36.4-46.3); WHITE BLOOD COUNT 4.36 K/uL (4.8-10.8)
[2017-10-14 08:42] LABS: CALCIUM 9.1 mg/dl (8.5-10.1); CREATININE 0.49 mg/dl (0.60-1.40); POTASSIUM 3.8 mmol/L (3.5-5.1)
[2017-10-14 08:43] LABS: PHOSPHORUS 4.3 mg/dl (2.5-4.9)
[2017-10-14 10:36] LABS: ALBUMIN 2.5 gm/dl (3.4-5.0); ALKALINE PHOSPHATASE 65 U/L (45-117); ALT/SGPT 68 U/L (12-78); AST/SGOT 52 U/L (15-37); TOTAL PROTEIN 6.3 gm/dl (6.4-8.2)
[2017-10-14 10:57] LABS: PTT PATIENT 49.9 SECONDS (21.0-31.0)
[2017-10-14] MEDS: CEROVITE ADV FORMULA TAB PO SCH (11:23)
[2017-10-14] MEDS ORDERED: METOPROLOL SUCC 25MG EXT REL TAB PO ONE (14:06)
--- NOTE | 2017-10-14 14:20 | CARDIOLOGY PROGRESS NOTE ---
DATE: 10/14/2017 DATE: 10/14/2017 The patient seen and examined. Chart, medications, telemetry reviewed. SUBJECTIVE: The patient feels well, has had no further pain or discomfort since admission, has been ambulatory in room and eating better. Notes weight is trending slightly upward. Notes no dizziness or lightheadedness. Notes no tachypalpitations or syncope. OBJECTIVE: VITAL SIGNS: Heart rate is 75, blood pressure is 113/65. NECK: Thin. There is no jugular venous distention. There are no carotid bruits. LUNGS: Clear with diffusely diminished breath sounds. CARDIOVASCULAR: Regular. There is no S3 gallop. ABDOMEN: Soft, nontender. EXTREMITIES: Without cyanosis or clubbing. There is no peripheral edema. There are intact distal pulses. LABORATORY DATA: Sodium is 131, potassium is 3.8, chloride is 95, bicarbonate is 30, BUN is 16, creatinine 0.49. AST was 52. IMPRESSION: A 62-year-old male with history of multiple underlying medical issues as described with chronic cachexia, chronic obstructive lung disease admitted with transient episode of chest pain with negative enzymes and EKGs initially though with chronic deep T-wave inversions observed on serial EKGs. Findings are concerning for underlying ischemic heart disease, though patient relatively poor risk for intervention at this time. PLAN: Heparin discontinued. Will add low dose beta josh to regimen and consider stress testing post hospital discharge as clinical course progresses.
--- NOTE | 2017-10-14 15:27 | Progress Note ---
Internal Med Progress Note Date of Service: Oct 14, 2017. Provider Documentation: SUBJECTIVE: The patient was seen and examined Admitted with Chest pain and significant EKG changes No more CP Remains stable and wants to go back to [facility] OBJECTIVE: Vital Signs-as noted below Exam: General-No distress at rest Poor nutrition Eyes-normal ENT-normal Neck-Supple Lungs-Decreased breath sound bilaterally Heart-Regular Abdomen-Benign,no masses,bowel sound present Extremities-No edema Neuro-AAOx3 Lab data as noted below. ASSESSMENT & PLAN: Transient CP with EKG changes No more CP No increase in Trop -echocardiogram Study Date: 07/24/2017 from [facility] EF = 63% No change from study dated 02/02/2016, Aortic stenosis is absent. There is no -significant aortic regurgitation, Mitral stenosis is absent. Mild mitral regurgitation is present, Pulmonic stenosis is absent. There is no significant pulmonary regurgitation ECHO-Ejection Fraction = 55-60%. * The left ventricular wall motion is normal. * Aortic valve sclerosis mild, without significant aortic valvular stenosis. * There is trace tricuspid regurgitation. Appreciate Cardiology input Has been on Heparin and Discontinued Likely conservative management Small dose of BB added Likely discharge tomorrow Malnutrition Nutrition consulted Getting Boost GERD will add ranitidine in case symptoms were due to GERD History of alcohol use in the past as [facility] notes Ativan prn if alcohol withdrawal symptoms Electrolytes Abnormalities Hypomagnesemia, serum magnesium 1.4. ED physician ordered IV magnesium 2 grams, will need to recheck serum magnesium levels for further replacement Monitor COPD H/O lung resection, on 24 hour home oxygen, has smoking history, COPD/Asthma Admitted to [facility] for Pneumonia / COPD on October 06, 2017 and discharged on Tuesday October 10, 2017 CXR: Diffuse emphysematous change with a potential interstitial infiltrate left base versus chronic fibrosis Continue oxygen and home inhalers Clinically stable Disposition: Observation telemetry Full Code Discussed with the family members Vital Signs: Date Time Temp Pulse Resp B/P (MAP) Pulse Ox O2 Delivery O2 Flow Rate FiO2 10/14/17 13:54 75 99 10/14/17 12:01 Nasal Cannula 2.0 10/14/17 11:19 36.4 76 18 113/65 (81) 99 Room Air 10/14/17 08:00 Nasal Cannula 2.0 10/14/17 07:56 36.9 71 18 101/61 (74) 96 10/14/17 05:34 36.6 81 18 111/48 (69) 99 Nasal Cannula 3.0 10/14/17 04:00 Nasal Cannula 2.0 10/14/17 00:28 80 18 106/56 (73) 93 Nasal Cannula 3.0 10/14/17 00:00 Nasal Cannula 2.0 10/13/17 20:13 36.8 85 18 114/71 (85) 96 Room Air 10/13/17 20:00 Nasal Cannula 2.0 10/13/17 16:00 Nasal Cannula 10/13/17 15:30 36.9 99 16 103/64 (77) 96 2.0 Lab Results: Results Past 24 Hours Test 10/13/17 17:48 10/14/17 01:31 10/14/17 07:45 10/14/17 09:53 Range/Units Activated Partial Thromboplast Time 32.9 45.7 49.9 21.0-31.0 SECONDS Partial Thromboplastin Ratio 1.3 1.8 1.9 White Blood Count 4.36 4.8-10.8 K/uL Red Blood Count 2.91 4.7-6.1 M/uL Hemoglobin 10.2 14.0-18.0 g/dL Hematocrit 29.5 42-52 % Mean Corpuscular Volume 101.4 80-100 fL Mean Corpuscular Hemoglobin 35.1 25-34 pg Mean Corpuscular Hemoglobin Concent 34.6 32-36 g/dl RDW Standard Deviation 50.2 36.4-46.3 fL RDW Coefficient of Variation 13.6 11.5-14.5 % Platelet Count 113 130-400 K/uL Mean Platelet Volume 10.8 7.4-10.4 fL Sodium Level 131 136-145 mmol/L Potassium Level 3.8 3.5-5.1 mmol/L Chloride Level 95 98-107 mmol/L Carbon Dioxide Level 30 21-32 mmol/L Anion Gap 6.0 3-11 mmol/L Blood Urea Nitrogen 16 7-18 mg/dl Creatinine 0.49 0.60-1.40 mg/dl Est Creatinine Clear Calc Drug Dose 98.4 ml/min Estimated GFR () 133.8 Estimated GFR (Non- 115.5 BUN/Creatinine Ratio 31.8 10-20 Random Glucose 122 70-99 mg/dl Calcium Level 9.1 8.5-10.1 mg/dl Phosphorus Level 4.3 2.5-4.9 mg/dl Magnesium Level 1.9 1.8-2.4 mg/dl Total Bilirubin 0.3 0.2-1 mg/dl Direct Bilirubin < 0.1 0-0.2 mg/dl Aspartate Amino Transf (AST/SGOT) 52 15-37 U/L Alanine Aminotransferase (ALT/SGPT) 68 12-78 U/L Alkaline Phosphatase 65 45-117 U/L Total Protein 6.3 6.4-8.2 gm/dl Albumin 2.5 3.4-5.0 gm/dl
[2017-10-15] MEDS: ALBUTEROL HFA 8 GM INHALER INH SCH ×6 (00:35→20:23)
[2017-10-15 04:39] VITALS: BP 105/56; PULSE 73; TEMP 36.6; O2SAT 99
[2017-10-15 07:06] VITALS: BP 107/45; PULSE 67; TEMP 36.4; O2SAT 99
[2017-10-15] MEDS: INCRUSE ELLIPTA~ORDER AWAITING ACTION SCH ×3 (07:15→16:00)
[2017-10-15] MEDS: CYANOCOBALAMIN 500 MCG TAB (VIT B-12) PO SCH (07:57)
[2017-10-15] MEDS: RANITIDINE HCL 150 MG TAB PO SCH (07:57)
[2017-10-15] MEDS: DOCUSATE SODIUM 100 MG CAP PO SCH ×2 (07:57→20:23)
[2017-10-15] MEDS: BuPROPion SR 150 MG TABCR PO SCH ×2 (07:57→20:23)
[2017-10-15] MEDS: THIAMINE HCL 100 MG TAB PO SCH (07:58)
[2017-10-15] MEDS: SERTRALINE HCL 50 MG TAB PO SCH (07:58)
[2017-10-15] MEDS: ATORVASTATIN 10 MG TAB PO SCH (08:00)
[2017-10-15] MEDS: METOPROLOL SUCC 25MG EXT REL TAB PO SCH (08:00)
[2017-10-15] MEDS: PANTOprazole SOD 40 MG TAB PO SCH (08:01)
[2017-10-15] MEDS: POTASSIUM CHLORIDE 20 MEQ TABCR PO SCH ×3 (08:01→17:15)
[2017-10-15] MEDS: ASPIRIN 81 MG CHEW PO SCH (08:02)
[2017-10-15] MEDS: BOOST VANILLA PO SCH ×3 (08:02→17:01)
[2017-10-15 08:23] LABS: PTT PATIENT 45.8 SECONDS (21.0-31.0)
[2017-10-15] MEDS ORDERED: HEPARIN IV BOLUS 2,000 UNIT in SYRINGE 0 ML IV ONE (09:00)
[2017-10-15] MEDS ORDERED: NURSING VERBAL MED ORDER ONE (09:15)
--- NOTE | 2017-10-15 11:48 | PROGRESS NOTE ---
DATE: 10/15/2017 CARDIOLOGY CONSULTATION FOLLOWUP NOTE The patient seen and examined. Chart, medications, telemetry reviewed. SUBJECTIVE: Notes no complaints this morning, was ambulatory in the hallway. Denies any chest pain or discomfort. Notes no dizziness or lightheadedness, appears to be tolerating low dose beta josh well. OBJECTIVE: VITAL SIGNS: Heart rate is 67, blood pressure is 107/45. NECK: Thin. There is no jugular venous distention. LUNGS: Clear. CARDIOVASCULAR: Regular. There is no S3 gallop. ABDOMEN: Soft, nontender. EXTREMITIES: Without cyanosis or clubbing. There is no peripheral edema. DATA: Telemetry reveals no arrhythmias. LABORATORY DATA: None for today. IMPRESSION AND PLAN: A 62-year-old male admitted with atypical chest discomfort though with abnormal EKG, deep T-wave inversion across the anterior precordial leads. He was begun on medical therapy as per Dr. Munson with aspirin, transient heparin, atorvastatin and low dose beta josh. The patient will be continued on current such empirically with planned outpatient stress testing following discharge. Ultimate goals would be recovery from current illness and aggressive attempts of treating underlying severe cachexia.
[2017-10-15 11:50] VITALS: BP 111/62; PULSE 69; TEMP 36.6; O2SAT 100
--- NOTE | 2017-10-15 13:56 | Progress Note ---
Internal Med Progress Note Date of Service: Oct 15, 2017. Provider Documentation: SUBJECTIVE: The patient was seen and examined Admitted with Chest pain and significant EKG changes Remains stable and wants to go back to [facility] Can not be accepted to today OBJECTIVE: Vital Signs-as noted below Exam: General-No distress at rest Poor nutrition Eyes-normal ENT-normal Neck-Supple Lungs-Decreased breath sound bilaterally Heart-Regular Abdomen-Benign,no masses,bowel sound present Extremities-No edema Neuro-AAOx3 Lab data as noted below. ASSESSMENT & PLAN: Transient CP with EKG changes No more CP No increase in Trop -echocardiogram Study Date: 07/24/2017 from [facility] EF = 63% No change from study dated 02/02/2016, Aortic stenosis is absent. There is no -significant aortic regurgitation, Mitral stenosis is absent. Mild mitral regurgitation is present, Pulmonic stenosis is absent. There is no significant pulmonary regurgitation ECHO-Ejection Fraction = 55-60%. * The left ventricular wall motion is normal. * Aortic valve sclerosis mild, without significant aortic valvular stenosis. * There is trace tricuspid regurgitation. Appreciate Cardiology input Has been on Heparin and Discontinued Likely conservative management Small dose of BB added Likely discharge tomorrow Remains stable Discharge tomorrow-OP stress test Malnutrition Nutrition consulted Getting Boost Appetite is better GERD will add ranitidine in case symptoms were due to GERD History of alcohol use in the past as [facility] notes Ativan prn if alcohol withdrawal symptoms Electrolytes Abnormalities Hypomagnesemia, serum magnesium 1.4. ED physician ordered IV magnesium 2 grams, will need to recheck serum magnesium levels for further replacement Monitor COPD H/O lung resection, on 24 hour home oxygen, has smoking history, COPD/Asthma Admitted to [facility] / [facility] on October 06, 2017 and discharged on Tuesday October 10, 2017 CXR: Diffuse emphysematous change with a potential interstitial infiltrate left base versus chronic fibrosis Continue oxygen and home inhalers Clinically stable Disposition: Observation telemetry Full Code Discussed with the family members Discharge tomorrow Vital Signs: Date Time Temp Pulse Resp B/P (MAP) Pulse Ox O2 Delivery O2 Flow Rate FiO2 10/15/17 12:00 Nasal Cannula 2.0 10/15/17 11:50 36.6 69 16 111/62 (78) 100 10/15/17 08:00 Nasal Cannula 2.0 10/15/17 07:06 36.4 67 16 107/45 (65) 99 2.0 10/15/17 04:39 36.6 73 18 105/56 (72) 99 Nasal Cannula 10/15/17 04:00 Nasal Cannula 2.0 10/15/17 00:00 Nasal Cannula 2.0 10/14/17 23:39 37.0 75 17 98/61 (73) 98 Nasal Cannula 2.0 10/14/17 20:00 Nasal Cannula 2.0 10/14/17 19:55 36.3 76 18 113/66 (82) 100 Room Air 10/14/17 16:00 Nasal Cannula 2.0 10/14/17 15:27 36.6 83 16 114/52 (72) 98 2.0 Lab Results: Results Past 24 Hours Test 10/15/17 07:08 Range/Units Activated Partial Thromboplast Time 45.8 21.0-31.0 SECONDS Partial Thromboplastin Ratio 1.8
[2017-10-15 15:02] VITALS: BP 94/47; PULSE 67; TEMP 36.7; O2SAT 99
[2017-10-15] MEDS: CEROVITE ADV FORMULA TAB PO SCH (16:25)
[2017-10-15 18:59] VITALS: BP 101/58; PULSE 75; TEMP 36.6; O2SAT 99
[2017-10-15 22:45] VITALS: BP 106/64; PULSE 69; TEMP 36.6; O2SAT 100
[2017-10-16] VITALS (8 sets, daily range): BP systolic 97–113; BP diastolic 51–67; PULSE 67–77; TEMP 36.4–36.8; O2SAT 95–100
[2017-10-16] MEDS: ALBUTEROL HFA 8 GM INHALER INH SCH ×5 (00:10→17:25)
[2017-10-16 05:57] LABS: MEAN CELL VOLUME 102.1 fL (80-100); MEAN CORPUSCULAR HEMOGLOBIN 35.2 pg (25-34); MEAN CORPUSCULAR HGB CONC 34.5 g/dl (32-36); MEAN PLATELET VOLUME 10.5 fL (7.4-10.4); PLATELET COUNT 166 K/uL (130-400); RED CELL DISTRIBUTION WIDTH CV 13.5 % (11.5-14.5); RED CELL DISTRIBUTION WIDTH SD 50.3 fL (36.4-46.3); WHITE BLOOD COUNT 4.49 K/uL (4.8-10.8)
[2017-10-16 06:08] LABS: PTT PATIENT 25.1 SECONDS (21.0-31.0)
--- NOTE | 2017-10-16 07:53 | Clinical Documentation Query ---
QUERY 1 OF [address] NARANJO, In your clinical opinion is this patient being managed for: ( + ) Chronic respiratory failure ( ) Not Agree ( ) Other explanation of clinical findings (Please Explain) ( ) Unable to determine (Please Define) ( ) Need to Discuss The medical record reflects the following clinical findings, treatment, and risk factors. Clinical Indicators: 62 yo male presenting with transient chest pain. Noted to chronically use O2 support. Treatment: chronic O2 support, albuterol nebs, breo, incruse Risk Factors: COPD, smoker QUERY 2 OF 2 In your clinical opinion is this patient being managed for: ( + ) Severe protein-calorie malnutrition ( ) Not Agree ( ) Other explanation of clinical findings (Please Explain) ( ) Unable to determine (Please Define) ( ) Need to Discuss The medical record reflects the following clinical findings, treatment, and risk factors. Clinical Indicators: Per cardiology consult, pt reported a 60 lb wt loss over the past 6 months. Dietary consult indicates pt with moderate loss of body fat, buccal fat wasting and muscle loss which mets the definition of acute malnutrition. Treatment: MVI w/Minerals, Folic Acid, Vitamin B12, boost tid, daily wts, HS snacks, liberalize diet to regular Risk Factors: alcohol abuse, COPD, recent pneumonia Severe Malnutrition Criteria: (2 criteria needed) Energy intake: <50% of estimated energy requirement for > 5 days Wt loss: 1-2% in 1 wk, 5% in 1 month, or 7.5% in 3 months Body fat: moderate loss of SQ fat from the orbits, triceps or fat overlying the ribs Muscle mass: moderate muscle wasting at the temples, clavicles, shoulders, interosseous spaces, scapula, thigh, calf Fluid accumulation: moderate to severe localized or generalized edema of the extremities, vulva, scrotum-wt loss may be masked by edema Please clarify and document your clinical opinion in the progress notes and discharge summary. Terms such as "probable", "suspected", "likely", "questionable", "possible", or "still to be ruled out" are acceptable. IF IN AGREEMENT, YOU MUST DOCUMENT ABOVE DIAGNOSTIC STATEMENT IN DAILY PROGRESS NOTES AND DISCHARGE SUMMARY. This document is not part of the patient's record. Thank You, Debra Bro RN [phone]
[2017-10-16] MEDS: INCRUSE ELLIPTA~ORDER AWAITING ACTION SCH ×3 (08:00→16:00)
[2017-10-16] MEDS: BOOST VANILLA PO SCH ×3 (08:00→17:25)
[2017-10-16] MEDS: ASPIRIN 81 MG CHEW PO SCH (08:29)
[2017-10-16] MEDS: THIAMINE HCL 100 MG TAB PO SCH (08:30)
[2017-10-16] MEDS: PANTOprazole SOD 40 MG TAB PO SCH (08:30)
[2017-10-16] MEDS: SERTRALINE HCL 50 MG TAB PO SCH (08:30)
[2017-10-16] MEDS: BuPROPion SR 150 MG TABCR PO SCH (08:31)
[2017-10-16] MEDS: ATORVASTATIN 10 MG TAB PO SCH (08:31)
[2017-10-16] MEDS: CYANOCOBALAMIN 500 MCG TAB (VIT B-12) PO SCH (08:31)
[2017-10-16] MEDS: RANITIDINE HCL 150 MG TAB PO SCH (08:32)
[2017-10-16] MEDS: METOPROLOL SUCC 25MG EXT REL TAB PO SCH (08:32)
[2017-10-16] MEDS: POTASSIUM CHLORIDE 20 MEQ TABCR PO SCH ×3 (08:32→17:28)
[2017-10-16] MEDS: DOCUSATE SODIUM 100 MG CAP PO SCH (09:00)
[2017-10-16 09:22] LABS: CREATININE 0.48 mg/dl (0.60-1.40); POTASSIUM 4.1 mmol/L (3.5-5.1)
--- NOTE | 2017-10-16 13:42 | Progress Note ---
Internal Med Progress Note Date of Service: Oct 16, 2017. Provider Documentation: SUBJECTIVE: The patient was seen and examined Admitted with Chest pain and significant EKG changes Remains stable and [place] [facility] [place] be discharged today Denies any symptoms OBJECTIVE: Vital Signs-as noted below Exam: General-No distress at rest Poor nutrition status Eyes-normal ENT-normal Neck-Supple Lungs-Decreased breath sound bilaterally No wheezing and or crackles Heart-Regular Abdomen-Benign,no masses,bowel sound present Extremities-No edema Neuro-AAOx3 Lab data as noted below. ASSESSMENT & PLAN: Transient CP with EKG changes No more CP No increase in Trop -echocardiogram Study Date: 07/24/2017 from [facility] EF = 63% No change from study dated 02/02/2016, Aortic stenosis is absent. There is no -significant aortic regurgitation, Mitral stenosis is absent. Mild mitral regurgitation is present, Pulmonic stenosis is absent. There is no significant pulmonary regurgitation ECHO-Ejection Fraction = 55-60%. * The left ventricular wall motion is normal. * Aortic valve sclerosis mild, without significant aortic valvular stenosis. * There is trace tricuspid regurgitation. Appreciate Cardiology input Has been on Heparin and Discontinued Likely conservative management Small dose of BB added Likely discharge tomorrow Remains stable Discharge tomorrow-OP stress test Severe Malnutrition Nutrition consulted Getting Boost Appetite is better GERD will add ranitidine in case symptoms were due to GERD History of alcohol use in the past as [facility] notes Ativan prn if alcohol withdrawal symptoms Electrolytes Abnormalities Hypomagnesemia, serum magnesium 1.4. ED physician ordered IV magnesium 2 grams, will need to recheck serum magnesium levels for further replacement Monitor COPD with Chronic Respiratory Failure H/O lung resection, on 24 hour home oxygen, has smoking history, COPD/Asthma Admitted to [facility] for Pneumonia / COPD on October 06, 2017 and discharged on Tuesday October 10, 2017 CXR: Diffuse emphysematous change with a potential interstitial infiltrate left base versus chronic fibrosis Continue oxygen and home inhalers Clinically stable Disposition: Observation telemetry Full Code Discussed with the family members Discharge in a day or two. Vital Signs: Date Time Temp Pulse Resp B/P (MAP) Pulse Ox O2 Delivery O2 Flow Rate FiO2 10/16/17 12:00 98 10/16/17 11:32 36.8 68 16 113/65 (81) 100 Room Air 10/16/17 08:00 98 Nasal Cannula 2.0 10/16/17 06:53 36.7 67 16 105/60 (75) 98 Nasal Cannula 2.0 10/16/17 04:35 36.7 70 16 97/53 (68) 98 Nasal Cannula 2.0 10/16/17 04:17 Nasal Cannula 2.0 10/16/17 00:14 Nasal Cannula 2.0 10/15/17 22:45 36.6 69 18 106/64 (78) 100 Nasal Cannula 2.0 10/15/17 20:00 Nasal Cannula 2.0 10/15/17 18:59 36.6 75 16 101/58 (72) 99 Nasal Cannula 2.0 10/15/17 16:00 Nasal Cannula 2.0 10/15/17 15:02 36.7 67 16 94/47 (63) 99 2.0 Lab Results: Results Past 24 Hours Test 10/16/17 05:38 10/16/17 05:42 Range/Units White Blood Count 4.49 4.8-10.8 K/uL Red Blood Count 2.84 4.7-6.1 M/uL Hemoglobin 10.0 14.0-18.0 g/dL Hematocrit 29.0 42-52 % Mean Corpuscular Volume 102.1 80-100 fL Mean Corpuscular Hemoglobin 35.2 25-34 pg Mean Corpuscular Hemoglobin Concent 34.5 32-36 g/dl RDW Standard Deviation 50.3 36.4-46.3 fL RDW Coefficient of Variation 13.5 11.5-14.5 % Platelet Count 166 130-400 K/uL Mean Platelet Volume 10.5 7.4-10.4 fL Activated Partial Thromboplast Time 25.1 21.0-31.0 SECONDS Partial Thromboplastin Ratio 1.0 Sodium Level 132 136-145 mmol/L Potassium Level 4.1 3.5-5.1 mmol/L Chloride Level 96 98-107 mmol/L Carbon Dioxide Level 30 21-32 mmol/L Anion Gap 7.0 3-11 mmol/L Blood Urea Nitrogen 14 7-18 mg/dl Creatinine 0.48 0.60-1.40 mg/dl Est Creatinine Clear Calc Drug Dose 100.7 ml/min Estimated GFR () 135.0 Estimated GFR (Non- 116.5 BUN/Creatinine Ratio 28.2 10-20 Random Glucose 102 70-99 mg/dl Calcium Level 10.0 8.5-10.1 mg/dl Magnesium Level 1.8 1.8-2.4 mg/dl
[2017-10-16] MEDS ORDERED: ASPCH81 PO (16:19)
[2017-10-16] MEDS ORDERED: LPT10 PO (16:19)
[2017-10-16] MEDS ORDERED: TPRSR25 PO (16:19)
--- NOTE | 2017-10-16 16:23 | Discharge Instructions ---
Discharge Instructions Date of Service Oct 16, 2017. Admission Reason for Admission: Chest Pain, Copd, Ekg Abnormality Discharge Discharge Diagnosis / Problem: Chest pain with EKG changes,No ACS,Malnutrition, COPD Discharge Goals Goal(s): Prevent Disease Progression Activity Recommendations Activity Level: Assistance Required . Additional Information Patient informed of condition: Yes Advance Directives: No DNR: No Level of Care: Skilled Communicable Disease: No Prognosis: Stable Oxygen at (LPM): Continue home O2 [place] Catheter: No Instructions / Follow-Up Instructions / Follow-Up Please make an appointment with your PCP in 1 week and your Cardiology in 1-2 weeks Current Hospital Diet Patient's current hospital diet: Regular Diet Discharge Diet Recommended Diet: Regular Diet Pending Studies Studies pending at discharge: no Laboratory Results Lipid Panel Test 10/13/17 10:25 Range/Units Triglycerides Level 94 0-150 mg/dl Cholesterol Level 124 0-200 mg/dl HDL Cholesterol 38 mg/dl Cholesterol/HDL Ratio 3.3 LDL Cholesterol, Calculated 67 mg/dl Medical Emergencies . Who to Call and When: Medical Emergencies: If at any time you feel your situation is an emergency, please call 911 immediately. . Non-Emergent Contact Non-Emergency issues call your: Primary Care Provider . Past History Medical & Surgical History: (1) Chest pain (2) Generalized weakness (3) EKG abnormality (4) COPD (chronic obstructive pulmonary disease) (5) HTN (hypertension) . "Provider Documentation" section prepared by Juanita Ball. . Core Measure Problem Core Measures: None
--- NOTE | 2017-10-17 10:34 | Discharge Summary ---
Discharge Summary Date of Service Oct 17, 2017. Discharge Summary Admission Date: Oct 13, 2017 at 13:03 Discharge Date: Oct 16, 2017 Principal Diagnosis: Chest pain with EKG changes,No ACS,Malnutrition,COPD Secondary Diagnoses/Problems: Please see H&P and Hospital Progress note Consultations: Cardiology Pending Studies/Follow-Up: Will need OP Stress test as per cardiology Medication Reconciliation New Medications: Aspirin (Aspirin Low Strength) 81 Mg Chew 81 MG PO DAILY for 30 Days, #30 Atorvastatin (Lipitor) 10 Mg Tab 10 MG PO QAM for 30 Days, #30 TAB Metoprolol Succinate (Metoprolol Succinate ER) 25 Mg Tabcr 12.5 MG PO QAM for 30 Days, #30 Continued Medications: Acetaminophen (Tylenol) 500 Mg Tab 500 MG PO Q4H, TAB FOR MILD PAIN (1-3), FEVER >101. Albuterol (Ventolin Hfa) 60 Puffs/5400 Mcg Aers 2 PUFFS INH Q4H Albuterol Sulf (Albuterol Sulfate) 2.5 Mg/3 Ml Nebu 2.5 MG INH Q4H PRN for Shortness of Breath Bupropion (Wellbutrin Sr) 150 Mg Ertab 150 MG PO BID, TAB START 10/14/17 Cyanocobalamin (Vitamin B12 500MCG) 500 Mcg Tab 500 MCG PO QAM, TAB Docusate Sodium (Docusate Sodium) 100 Mg Cap 100 MG PO BID for 7 Days, #14 CAP Fluticasone Furoate-Vilanterol (Breo Ellipta) 1 Inh Inh 1 PUFF INH QAM Folic Acid (Folvite) 1 Mg Tab 1 MG PO QAM, TAB Home O2 Therapy (Oxygen) Gas 2 LITERS NA CONTINOUS, BTL Multiple Vitamins W/ Minerals (Centrum Silver Adult 50+) 1 Tab Tab 1 TAB PO QDL Pantoprazole (Protonix) 40 Mg Tab 40 MG PO QAM, #30 TAB Potassium Ext Rel (Klor-Con) 20 Meq Tabcr 20 MEQ PO TIDM, TAB Sertraline (Zoloft) 25 Mg Tab 75 MG PO QAM, TAB Thiamine Mononitrate (Vitamin B1) 100 Mg Tab 100 MG PO QAM Tramadol (Ultram) 50 Mg Tab 50 MG PO Q4H PRN for Pain, TAB PAIN SCALE (4-6). Umeclidinium [place] (Incruse Ellipta) 62.5 Mcg/Inh Inh 1 PUFF INH QAM Admission Information HPI (per Admitting provider): 62 year old M who was admitted to [facility] for Pneumonia / COPD on October 06, 2017 and discharged on Tuesday October 10, 2017 to [facility] when patient felt 15 minutes of midsternal chest pain, non radiating, about 2 hours after dinner. Patient reports symptoms resolved on its own. Denies previous similar symptoms. Denies history of gastric reflux. Patient's past medical history significant for COPD, is on oxygen 24 hours a day, history of lung resection, abdominal aortic aneurysm repair. Patient seen and evaluated in the Ed by hospitalist medicine physician and denies recurrence of the chest discomfort so far. Denies abdominal pain or changes in oral intake or urination or in bowel movements Social History Smoking Status: Former Smoker Marital Status: Occupational Status: disabled Allergies Coded Allergies: Penicillins (Verified Allergy, Intermediate, WHOLE BODY RASH, 10/12/17) Home Medications Scheduled Acetaminophen (Tylenol), 500 MG PO Q4H Albuterol (Ventolin Hfa), 2 PUFFS INH Q4H Bupropion (Wellbutrin Sr), 150 MG PO BID Cyanocobalamin (Vitamin B12 500MCG), 500 MCG PO QAM Docusate Sodium (Docusate Sodium), 100 MG PO BID Fluticasone Furoate-Vilanterol (Breo Ellipta), 1 PUFF INH QAM Folic Acid (Folvite), 1 MG PO QAM Home O2 Therapy (Oxygen), 2 LITERS NA CONTINOUS Multiple Vitamins W/ Minerals (Centrum Silver Adult 50+), 1 TAB PO QDL Pantoprazole (Protonix), 40 MG PO QAM Potassium Ext Rel (Klor-Con), 20 MEQ PO TIDM Sertraline (Zoloft), 75 MG PO QAM Thiamine Mononitrate (Vitamin B1), 100 MG PO QAM Umeclidinium [place] (Incruse Ellipta), 1 PUFF INH QAM Scheduled PRN Albuterol Sulf (Albuterol Sulfate), 2.5 MG INH Q4H PRN for Shortness of Breath Tramadol (Ultram), 50 MG PO Q4H PRN for Pain Review of Systems Constitutional: No fever Eyes: No discharge ENT: No nasal symptoms, No sore throat, No trouble swallowing Respiratory: No cough, No sputum, No wheezing, No shortness of breath Cardiovascular: + chest pain, No edema, No palpitations Abdomen: No pain, No nausea, No vomiting, No diarrhea, No constipation Musculoskeletal: No joint pain, No muscle pain, No swelling, No calf pain Genitourinary - Male: No dysuria Neurologic: No numbness/tingling Psychiatric: No substance abuse Endocrine: No fatigue Hematologic / Lymphatic: No abnormal bleeding/bruising Integumentary: No rash Physical Ex - H&P Physical Exam Vital Signs Date Time Temp Pulse Resp B/P (MAP) Pulse Ox O2 Delivery O2 Flow Rate FiO2 10/12/17 22:37 86 20 98 10/12/17 22:30 103/60 10/12/17 22:07 88 23 98 10/12/17 22:04 94 10/12/17 22:00 114/58 10/12/17 21:46 103/54 10/12/17 21:38 36.9 87 18 103/54 98 Nasal Cannula 2.0 10/12/17 21:38 98 Nasal Cannula 2.0 10/12/17 21:38 98 Nasal Cannula 2.0 General Appearance: no apparent distress, + thin Head: normocephalic, atraumatic Eyes: normal inspection, EOMI, sclerae normal ENT: normal ENT inspection, hearing grossly normal, pharynx normal Neck: supple, no JVD, trachea midline Respiratory/Chest: chest non-tender, lungs clear, normal breath sounds, no respiratory distress, no accessory muscle use Cardiovascular: regular rate, rhythm, no edema, no JVD, normal peripheral pulses Abdomen/GI: normal bowel sounds, non tender, soft, no organomegaly Back: normal inspection, no muscle spasm, normal range of motion Extremities/Musculoskelatal: normal inspection, no calf tenderness, no pedal edema, non-tender Neurologic/Psych: alert, normal mood/affect, oriented x 3 Skin: normal color, warm/dry, no rash Diagnostics - H&P Diagnostics Laboratory Results Results Past 24 Hours Test 10/12/17 21:17 Range/Units White Blood Count 6.24 4.8-10.8 K/uL Red Blood Count 2.98 4.7-6.1 M/uL Hemoglobin 10.5 14.0-18.0 g/dL Hematocrit 30.4 42-52 % Mean Corpuscular Volume 102.0 80-100 fL Mean Corpuscular Hemoglobin 35.2 25-34 pg Mean Corpuscular Hemoglobin Concent 34.5 32-36 g/dl Platelet Count 110 130-400 K/uL Mean Platelet Volume 11.1 7.4-10.4 fL Neutrophils (%) (Auto) 75.1 % Lymphocytes (%) (Auto) 15.4 % Monocytes (%) (Auto) 7.2 % Eosinophils (%) (Auto) 2.1 % Basophils (%) (Auto) 0.0 % Neutrophils # (Auto) 4.69 1.4-6.5 K/uL Lymphocytes # (Auto) 0.96 1.2-3.4 K/uL Monocytes # (Auto) 0.45 0.11-0.59 K/uL Eosinophils # (Auto) 0.13 0-0.5 K/uL Basophils # (Auto) 0.00 0-0.2 K/uL RDW Standard Deviation 50.7 36.4-46.3 fL RDW Coefficient of Variation 13.6 11.5-14.5 % Immature Granulocyte % (Auto) 0.2 % Immature Granulocyte # (Auto) 0.01 0.00-0.02 K/uL Sodium Level 132 136-145 mmol/L Potassium Level 4.4 3.5-5.1 mmol/L Chloride Level 96 98-107 mmol/L Carbon Dioxide Level 32 21-32 mmol/L Anion Gap 4.0 3-11 mmol/L Blood Urea Nitrogen 20 7-18 mg/dl Creatinine 0.64 0.60-1.40 mg/dl Est Creatinine Clear Calc Drug Dose 73.6 ml/min Estimated GFR () 119.9 Estimated GFR (Non- 103.5 BUN/Creatinine Ratio 31.9 10-20 Random Glucose 114 70-99 mg/dl Calcium Level 10.1 8.5-10.1 mg/dl Magnesium Level 1.4 1.8-2.4 mg/dl Troponin I 0.045 0-0.045 ng/ml Impression - H&P Impression Assessment and Plan Cardiac -felt 15 minutes of midsternal chest pain, non radiating, about 2 hours after dinner -received aspirin 324 mg in the ED -troponin negative x 1, trend troponin -abdominal aortic aneurysm repair in the past -echocardiogram Study Date: 07/24/2017 from [facility] EF = 63% No change from study dated 02/02/2016, Aortic stenosis is absent. There is no -significant aortic regurgitation, Mitral stenosis is absent. Mild mitral regurgitation is present, Pulmonic stenosis is absent. There is no significant pulmonary regurgitation -since patient's recent echocardiogram has been normal, will ask cardiology to evaluate whether additional echocardiogram testing is needed for this presentation -NPO after midnight if needs stress test GI no prior history of gastric reflux will add ranitidine in case symptoms were due to GERD History of alcohol use in the past as [facility] notes Ativan prn if alcohol withdrawal symptoms Electrolytes Hypomagnesemia, serum magnesium 1.4. ED physician ordered IV magnesium 2 grams, will need to recheck serum magnesium levels for further replacement Respiratory reports history of lung resection, on 24 hour home oxygen, has smoking history, COPD/Asthma admitted to [facility] for Pneumonia / COPD on October 06, 2017 and discharged on Tuesday October 10, 2017 CXR: Diffuse emphysematous change with a potential interstitial infiltrate left base versus chronic fibrosis continue oxygen and home inhalers Disposition: Observation telemetry Full Code Daughter [phone] Level of Care Telemetry Resuscitation Status FULL RESUSCITATION VTE Prophylaxis VTE Risk Assessment Done? Y/N: Yes Risk Level: Moderate Physical Exam (per Admitting): General Appearance: no apparent distress, + thin Head: normocephalic, atraumatic Eyes: normal inspection, EOMI, sclerae normal ENT: normal ENT inspection, hearing grossly normal, pharynx normal Neck: supple, no JVD, trachea midline Respiratory/Chest: chest non-tender, lungs clear, normal breath sounds, no respiratory distress, no accessory muscle use Cardiovascular: regular rate, rhythm, no edema, no JVD, normal peripheral pulses Abdomen/GI: normal bowel sounds, non tender, soft, no organomegaly Back: normal inspection, no muscle spasm, normal range of motion Extremities/Musculoskelatal: normal inspection, no calf tenderness, no pedal edema, non-tender Neurologic/Psych: alert, normal mood/affect, oriented x 3 Skin: normal color, warm/dry, no rash Hospital Course Transient CP with EKG changes No more CP No increase in Trop -echocardiogram Study Date: 07/24/2017 from [facility] EF = 63% No change from study dated 02/02/2016, Aortic stenosis is absent. There is no -significant aortic regurgitation, Mitral stenosis is absent. Mild mitral regurgitation is present, Pulmonic stenosis is absent. There is no significant pulmonary regurgitation ECHO-Ejection Fraction = 55-60%. * The left ventricular wall motion is normal. * Aortic valve sclerosis mild, without significant aortic valvular stenosis. * There is trace tricuspid regurgitation. Appreciate Cardiology input Has been on Heparin and Discontinued Likely conservative management Small dose of BB added Likely discharge tomorrow Remains stable Discharge tomorrow-OP stress test Severe Malnutrition Nutrition consulted Getting Boost Appetite is better GERD will add ranitidine in case symptoms were due to GERD History of alcohol use in the past as [facility] notes Ativan prn if alcohol withdrawal symptoms Electrolytes Abnormalities Hypomagnesemia, serum magnesium 1.4. ED physician ordered IV magnesium 2 grams, will need to recheck serum magnesium levels for further replacement Monitor COPD with Chronic Respiratory Failure H/O lung resection, on 24 hour home oxygen, has smoking history, COPD/Asthma Admitted to [facility] for Pneumonia / COPD on October 06, 2017 and discharged on Tuesday October 10, 2017 CXR: Diffuse emphysematous change with a potential interstitial infiltrate left base versus chronic fibrosis Continue oxygen and home inhalers Clinically stable Disposition: Observation telemetry Full Code Discussed with the family members Discharge in a day or two. Total time spent on discharge = 35 minutes This includes examination of the patient, discharge planning, medication reconciliation, and communication with other providers. Discharge Instructions Date of Service Oct 16, 2017. Admission Reason for Admission: Chest Pain, Copd, Ekg Abnormality Discharge Discharge Diagnosis / Problem: Chest pain with EKG changes,No ACS,Malnutrition, COPD Discharge Goals Goal(s): Prevent Disease Progression Activity Recommendations Activity Level: Assistance Required . Additional Information Patient informed of condition: Yes Advance Directives: No DNR: No Level of Care: Skilled Communicable Disease: No Prognosis: Stable Oxygen at (LPM): Continue home O2 [place] Catheter: No Instructions / Follow-Up Instructions / Follow-Up Please make an appointment with your PCP in 1 week and your Cardiology in 1-2 weeks Current Hospital Diet Patient's current hospital diet: Regular Diet Discharge Diet Recommended Diet: Regular Diet Pending Studies Studies pending at discharge: no Laboratory Results Lipid Panel Test 10/13/17 10:25 Range/Units Triglycerides Level 94 0-150 mg/dl Cholesterol Level 124 0-200 mg/dl HDL Cholesterol 38 mg/dl Cholesterol/HDL Ratio 3.3 LDL Cholesterol, Calculated 67 mg/dl Medical Emergencies . Who to Call and When: Medical Emergencies: If at any time you feel your situation is an emergency, please call 911 immediately. . Non-Emergent Contact Non-Emergency issues call your: Primary Care Provider . Past History Medical & Surgical History: (1) Chest pain (2) Generalized weakness (3) EKG abnormality (4) COPD (chronic obstructive pulmonary disease) (5) HTN (hypertension) . "Provider Documentation" section prepared by Juanita Ball. . Core Measure Problem Core Measures: None <Electronically signed by Juanita Ball M.D.> Additional Copies To Zion Berman PA-C
== END 2017-10-16 19:38 | DRG 313 ==
LOC: EDBD 21:37 → C.EDB 21:39 → C.MED 23:55 → ENRESERV 10-13 00:33 → OBSVTOIN 10-13 13:03
PROVIDERS: ADMIT Hospitalist; ATTEND Internal Medicine
DX: R07.89 Other chest pain (principal); E43 Unspecified severe protein-calorie malnutrition; J96.10 Chronic respiratory failure, unspecified whether with hypoxia or hypercapnia; R64 Cachexia; J44.9 Chronic obstructive pulmonary disease, unspecified; I10 Essential (primary) hypertension; I35.1 Nonrheumatic aortic (valve) insufficiency; F10.10 Alcohol abuse, uncomplicated; K21.9 Gastro-esophageal reflux disease without esophagitis; Z87.891 Personal history of nicotine dependence; E83.42 Hypomagnesemia; D69.6 Thrombocytopenia, unspecified; Z99.81 Dependence on supplemental oxygen; Z90.2 Acquired absence of lung [part of]